=== PATIENT | female | born 1985 | race Caucasian/White ===

== ENCOUNTER 2020-01-12 15:37 | Inpatient (IN) | payer OTHER, SELFPAY ==
[~2020-01-12] VITALS: Ht 160 cm; Wt 51.0 kg
[2020-01-12] MEDS ORDERED: SODIUM CHLORIDE 0.9% 1,000 ML IV ONE ×2 (15:49→17:42)
--- NOTE | 2020-01-12 15:51 | NUR ---
dr olvera spoke with poison control
--- NOTE | 2020-01-12 15:59 | NUR ---
ASSUMED CARE OF PATIENT. PT BIB [facility] AFTER TAKING A BOTTLE OF RISPERIDONE. PT REPORTS SHE DID NOT DO IT TO HURT HERSELF, SHE JUST WANTED TO SLEEP. PT DENIES SI, HI. PT ALSO DENIES ANY PSYCH HISTORY. PT REPORTS SHE IS COMING OFF OF HEROIN AND JUST WANTED TO SLEEP. STRETCHER AND DRIER ON. SINUS TACH NOTED. PT HAS BEEN SEEN BY DR LINDSAY. VS STABLE AT THIS TIME. PT APPEARS DROWSY. BELONGINGS LOCKED UP IN LOCKER. EKG DONE. CALL LIGHT IN PLACE. WILL CONTINUE TO MONITOR.
[2020-01-12] MEDS ORDERED: SODIUM CHLORIDE FLUSH 10ML SYR IVF ONE (16:00)
[2020-01-12] MEDS ORDERED: SODIUM CHLORIDE 0.9% 1,000ML IVBOLUS ONE (16:00)
[2020-01-12] MEDS ORDERED: suboxone (16:17)
[2020-01-12] MEDS ORDERED: RISP1TAB3 PO (16:18)
--- NOTE | 2020-01-12 16:18 | NUR ---
SEIZURE PADS ON. CNC TECHNICIAN ON. VS STABLE. CALL LIGHT IN PLACE. WILL COTNINUE TO MONITOR.
--- NOTE | 2020-01-12 16:37 | NUR ---
PT RESTING IN ROOM WITH EYES CLOSED. PLOW HOLDER ON. SINUS TACH NOTED. SITTER AT DOOR. CALL LIGHT IN PLACE. WILL CONTINUE TO MONITOR.
[2020-01-12 17:11] LABS: BASOPHILS # (AUTO) 0.04 x10^3/uL (0-0.1); BASOPHILS % (AUTO) 1 % (0-1); EOSINOPHILS % (AUTO) 2 % (1-7); LYMPHOCYTES # (AUTO) 1.33 x10^3/uL (1-3.4); LYMPHOCYTES % (AUTO) 19 % (22-44); MD NO; MEAN CORPUSCULAR HEMOGLOBIN 31.2 pg (27.0-34.8); MEAN CORPUSCULAR HGB CONC 33.6 g/dL (32.4-35.8); MEAN PLATELET VOLUME 7.1 fL (7.4-10.4); MONOCYTES # (AUTO) 0.31 x10^3/uL (0.2-0.8); MONOCYTES % (AUTO) 4 % (2-9); NEUTROPHILS # (AUTO) 5.37 x10^3/uL (1.8-6.8); NEUTROPHILS % (AUTO) 75 % (42-75); PLATELET COUNT 417 x10^3/uL (130-400); RED BLOOD COUNT 4.12 x10^6/uL (3.82-5.3); RED CELL DISTRIBUTION WIDTH 14.4 % (9.6-15.2)
[2020-01-12 17:21] LABS: ALANINE AMINOTRANSFERASE 25 U/L (12-78); ALBUMIN 3.8 g/dL (3.4-5.0); ANION GAP 7 mmol/L (5-15); CALCIUM 8.7 mg/dL (8.5-10.1); CHLORIDE 111 mmol/L (98-107); CREATININE 0.63 mg/dL (0.55-1.02); SALICYLATE LEVEL 2.8 mg/dL (2.8-20.0)
[2020-01-12 17:26] LABS: ALKALINE PHOSPHATASE 88 U/L (45-117); BILIRUBIN,TOTAL 0.4 mg/dL (0.2-1.0); TOTAL PROTEIN 8.2 g/dL (6.4-8.2)
[2020-01-12] MEDS ORDERED: SODIUM CHLORIDE FLUSH 10ML SYR IVF PRN (18:00)
--- NOTE | 2020-01-12 18:04 | NUR ---
HOSPITALIST IN ROOM.
--- NOTE | 2020-01-12 18:17 | NUR ---
BREAK RN: ASSIST PT OFF BEDPAN. UNABLE TO COLLECT URINE, VISABLE CONTAMINATED WITH DEBRIS. PT ASSIST WITH MAGDIEL CARE, CHANGE OF LINEN. C/O "BEING COLD" EXTRA BLANKETS PROVIDED. SR PER MONITOR. AUTO BP AND PULSE OX IN PLACE. WAITING FOR FURTHER DISPOSITION.
[2020-01-12] MEDS ORDERED: ONDANSETRON ODT 4 MG PO PRN (18:30)
[2020-01-12] MEDS ORDERED: POLYETHYLENE GLYCOL 17 GM PACKET PO PRN (18:30)
[2020-01-12] MEDS ORDERED: BISACODYL 10 MG SUPP PR PRN (18:30)
--- NOTE | 2020-01-12 18:47 | NUR ---
REPOR TO LEROY OLSON AND NIKKI OLSON
--- NOTE | 2020-01-12 18:57 | NUR ---
PT RESTING IN ROOM. VS STABLE. NO ACUTE DISTRESS NOTED. DIRECTOR WORKERS COMPENSATION ON. NSR NOTED. WILL CONTINUE TO MONITOR.
--- NOTE | 2020-01-12 19:09 | NUR ---
PATIENTS HOME MED BUPREN-NALOXONE WAS TAKEN TO PHARMACY. PATIENT AWARE.
[2020-01-12 19:46] VITALS: BP 106/69
[2020-01-12] MEDS: SODIUM CHLORIDE 0.45% 1,000 ML IV SCH (21:30)
[2020-01-13 00:27] VITALS: BP 118/70
[2020-01-13 06:28] LABS: BASOPHILS # (AUTO) 0.01 x10^3/uL (0-0.1); BASOPHILS % (AUTO) 0 % (0-1); EOSINOPHILS # (AUTO) 0.03 x10^3/uL (0-0.4); EOSINOPHILS % (AUTO) 0 % (1-7); LYMPHOCYTES # (AUTO) 1.36 x10^3/uL (1-3.4); LYMPHOCYTES % (AUTO) 13 % (22-44); MD NO; MEAN CORPUSCULAR HEMOGLOBIN 30.9 pg (27.0-34.8); MEAN CORPUSCULAR HGB CONC 33.3 g/dL (32.4-35.8); MEAN PLATELET VOLUME 7.8 fL (7.4-10.4); MONOCYTES # (AUTO) 0.39 x10^3/uL (0.2-0.8); MONOCYTES % (AUTO) 4 % (2-9); NEUTROPHILS # (AUTO) 9.05 x10^3/uL (1.8-6.8); NEUTROPHILS % (AUTO) 84 % (42-75); PLATELET COUNT 315 x10^3/uL (130-400); RED BLOOD COUNT 3.97 x10^6/uL (3.82-5.3); RED CELL DISTRIBUTION WIDTH 14.3 % (9.6-15.2)
[2020-01-13 06:34] LABS: ANION GAP 7 mmol/L (5-15); CALCIUM 8.8 mg/dL (8.5-10.1); CHLORIDE 110 mmol/L (98-107); CREATININE 0.58 mg/dL (0.55-1.02)
[2020-01-13 07:29] VITALS: BP 104/70
[2020-01-13] MEDS: SODIUM CHLORIDE 0.45% 1,000 ML IV SCH ×2 (07:30→21:00)
[2020-01-13] MEDS: SENNA/DOCUSATE TABLET PO SCH (09:00)
[2020-01-13 10:25] LABS: MICROSCOPIC NOT IND
[2020-01-13 10:36] LABS: AMPHETAMINE SCREEN, URINE Positive (Negative); BARBITURATE SCREEN, URINE Negative (Negative); BENZODIAZEPINE SCREEN, URINE Negative (Negative); CANNABINOID SCREEN, URINE Positive (Negative); COCAINE SCREEN, URINE Negative (Negative); METHADONE SCREEN, URINE Negative (Negative); OPIATE SCREEN, URINE Positive (Negative)
[2020-01-13] MEDS ORDERED: LORazepam 1MG TABLET PO PRN (12:00)
[2020-01-13] MEDS ORDERED: LORazepam 2 MG/ML, 1ML IVPush PRN (12:00)
[2020-01-13 12:48] VITALS: BP 100/59
[2020-01-13 19:54] VITALS: BP 108/72
[2020-01-13 21:22] LABS: HCG UR SG 1.012 (1.003-1.030)
[2020-01-14 02:42] VITALS: BP 117/77
[2020-01-14 05:09] LABS: BASOPHILS # (AUTO) 0.02 x10^3/uL (0-0.1); BASOPHILS % (AUTO) 0 % (0-1); EOSINOPHILS # (AUTO) 0.02 x10^3/uL (0-0.4); EOSINOPHILS % (AUTO) 0 % (1-7); LYMPHOCYTES # (AUTO) 1.71 x10^3/uL (1-3.4); LYMPHOCYTES % (AUTO) 18 % (22-44); MD NO; MEAN CORPUSCULAR HEMOGLOBIN 30.7 pg (27.0-34.8); MEAN CORPUSCULAR HGB CONC 33.1 g/dL (32.4-35.8); MEAN PLATELET VOLUME 6.9 fL (7.4-10.4); MONOCYTES # (AUTO) 0.56 x10^3/uL (0.2-0.8); MONOCYTES % (AUTO) 6 % (2-9); NEUTROPHILS # (AUTO) 7.32 x10^3/uL (1.8-6.8); NEUTROPHILS % (AUTO) 76 % (42-75); PLATELET COUNT 473 x10^3/uL (130-400); RED CELL DISTRIBUTION WIDTH 14.6 % (9.6-15.2)
[2020-01-14 05:13] LABS: ANION GAP 9 mmol/L (5-15); CALCIUM 8.6 mg/dL (8.5-10.1); CHLORIDE 105 mmol/L (98-107); CREATININE 0.57 mg/dL (0.55-1.02)
[2020-01-14 06:27] VITALS: BP 110/74
[2020-01-14] MEDS: SENNA/DOCUSATE TABLET PO SCH (09:00)
[2020-01-14] MEDS: SODIUM CHLORIDE 0.45% 1,000 ML IV SCH (09:14)
== END 2020-01-14 10:44 | disposition left against medical advice (07) | DRG 918 ==
LOC: ED 16:31 → EDIP 18:18 → 4EST 19:29
PROVIDERS: ADMIT Internal Medicine; ATTEND Internal Medicine
DX: T43.501A Poisoning by unspecified antipsychotics and neuroleptics, accidental (unintentional), initial encounter (principal); F11.20 Opioid dependence, uncomplicated; E87.2 Acidosis; F41.9 Anxiety disorder, unspecified; F17.210 Nicotine dependence, cigarettes, uncomplicated; F12.90 Cannabis use, unspecified, uncomplicated; F32.9 Major depressive disorder, single episode, unspecified; F15.10 Other stimulant abuse, uncomplicated; Z53.29 Procedure and treatment not carried out because of patient's decision for other reasons; Y92.89 Other specified places as the place of occurrence of the external cause; Z56.0 Unemployment, unspecified; F99 Mental disorder, not otherwise specified
CPT/HCPCS: 36415; 71045; 80048; 80053; 80307; 81003; 81025; 83735; 84100; 84703; 85025; 93005; 96360; G0378; J7030